=== PATIENT | male | born 1950 | race Caucasian/White ===

== ENCOUNTER 2017-12-06 15:48 | Emergency (ER) | payer MEDICARE, MEDICAID ==
[~2017-12-06] VITALS: Ht 170.2 cm; Wt 81.4 kg
[2017-12-06 15:52] VITALS: BP 118/76
[2017-12-06] MEDS ORDERED: HYDROmorphone 2 MG/ML, 1ML ONE (16:27)
[2017-12-06] MEDS ORDERED: DIAZEPAM 5 MG TABLET ONE (16:27)
[2017-12-06] MEDS ORDERED: DIAZEPAM 5 MG TABLET PO ONE (16:30)
[2017-12-06] MEDS ORDERED: HYDROmorphone 2 MG/ML, 1ML IM ONE (16:30)
== END 2017-12-06 18:07 | disposition home or self-care (01) ==
LOC: ED 17:45
DX: M54.16 Radiculopathy, lumbar region (principal); M54.42 Lumbago with sciatica, left side
CPT/HCPCS: 72110; 96372; 99284; J1170